=== PATIENT | female | born 1960 | race Caucasian/White ===

== ENCOUNTER 2022-11-11 15:58 | Inpatient (IN) | payer SELFPAY ==
[~2022-11-11] VITALS: Ht 160 cm; Wt 60.2 kg
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
[2022-11-11 16:27] LABS: BASOPHILS % (AUTO) 0 % (0-10); EOSINOPHILS # (AUTO) 0.1 10^3/uL (0.0-0.3); EOSINOPHILS % (AUTO) 1 % (0-10); HEMATOCRIT 39 % (35-52); HEMOGLOBIN 13.6 g/dL (11.5-16.0); LYMPHOCYTES # (AUTO) 1.5 10^3/uL (1.0-4.0); LYMPHOCYTES % (AUTO) 23 % (12-44); MEAN CORPUSCULAR HEMOGLOBIN 31 pg (25-34); MEAN CORPUSCULAR HGB CONC 35 g/dL (32-36); MEAN CORPUSCULAR VOLUME 90 fL (80-99); MEAN PLATELET VOLUME 8.8 fL (9.0-12.2); MONOCYTES # (AUTO) 0.3 10^3/uL (0.0-1.0); MONOCYTES % (AUTO) 5 % (0-12); NEUTROPHILS # (AUTO) 4.9 10^3/uL (1.8-7.8); NEUTROPHILS % (AUTO) 71 % (42-75); PLATELET COUNT 175 10^3/uL (130-400); WHITE BLOOD COUNT 6.8 10^3/uL (4.3-11.0)
[2022-11-11 16:31] LABS: ALBUMIN 4.1 GM/DL (3.2-4.5); CHLORIDE 103 MMOL/L (98-107); POTASSIUM 3.2 MMOL/L (3.6-5.0); SODIUM 137 MMOL/L (135-145)
[2022-11-11 16:33] LABS: CALCIUM 8.8 MG/DL (8.5-10.1)
[2022-11-11 16:34] LABS: GLUCOSE 130 MG/DL (70-105); TOTAL PROTEIN 6.8 GM/DL (6.4-8.2)
[2022-11-11 16:35] LABS: CARBON DIOXIDE 20 MMOL/L (21-32)
[2022-11-11 16:36] LABS: BILIRUBIN,TOTAL 0.2 MG/DL (0.1-1.0)
[2022-11-11 16:37] LABS: PROTHROMBIN TIME PATIENT 13.7 SEC (12.2-14.7)
[2022-11-11 16:38] LABS: ALKALINE PHOSPHATASE 74 U/L (40-136); CREATININE SERUM 0.78 MG/DL (0.60-1.30); GFR ESTIMATED 85
[2022-11-11 16:39] LABS: BUN/CREATININE RATIO 12
[2022-11-11 16:40] LABS: SALICYLATE < 5.0 MG/DL (5.0-20.0)
[2022-11-11 16:41] LABS: ALANINE AMINOTRANSFERASE 12 U/L (0-55)
[2022-11-11 16:52] LABS: ACETAMINOPHEN 116 UG/ML (10-30)
[2022-11-11] MEDS ORDERED: NS IV 1000 ML 1,000 ML IV SCH (18:15)
[2022-11-11 21:02] LABS: BILIRUBIN,URINE NEGATIVE (NEGATIVE); CLARITY,URINE CLEAR; COLOR,URINE YELLOW; GLUCOSE, URINE (UA) NEGATIVE (NEGATIVE); KETONES,URINE NEGATIVE (NEGATIVE); LEUKOCYTE ESTERASE ,URINE NEGATIVE (NEGATIVE); NITRITE,URINE NEGATIVE (NEGATIVE); PH,URINE 5.5 (5-9); PROTEIN,URINE NEGATIVE (NEGATIVE)
[2022-11-11 21:10] LABS: BACTERIA,URINE TRACE /HPF
[2022-11-11 21:15] LABS: AMPHETAMINE SCREEN, URINE NEGATIVE (NEGATIVE); BARBITURATE SCREEN URINE NEGATIVE (NEGATIVE); BENZODIAZEPINES SCREEN URINE NEGATIVE (NEGATIVE); CANNABINOID SCREEN, URINE NEGATIVE (NEGATIVE); COCAINE SCREEN URINE NEGATIVE (NEGATIVE); METHADONE STAT NEGATIVE (NEGATIVE); OPIATE SCREEN URINE POSITIVE (NEGATIVE); OXYCODONE STAT POSITIVE (NEGATIVE); PROPOXYPHENE STAT NEGATIVE (NEGATIVE); TRICYCLIC ANTIDEPRESSANTS SCRE NEGATIVE (NEGATIVE)
[2022-11-12] MEDS ORDERED: KCL 20 MEQ TAB (K-DUR) PO ONE ×2 (03:45→06:22)
[2022-11-12] MEDS ORDERED: ONDANSETRON 4 MG (ZOFRAN) ORAL DISSOLVE TAB SL STA (09:25)
[2022-11-12] MEDS ORDERED: NS IV 1000 ML 1,000 ML IV STA (10:17)
[2022-11-12] MEDS ORDERED: ONDANSETRON 4 MG/2 ML (SDV) Z0FRAN IVP ONE (10:30)
[2022-11-12] MEDS ORDERED: NICOTINE 21 MG (NICODERM) PATCH TD ONE (14:45)
[2022-11-13 03:11] LABS: HEMATOCRIT 37 % (35-52); HEMOGLOBIN 12.8 g/dL (11.5-16.0); MEAN CORPUSCULAR HEMOGLOBIN 31 pg (25-34); MEAN CORPUSCULAR HGB CONC 35 g/dL (32-36); MEAN CORPUSCULAR VOLUME 91 fL (80-99); PLATELET COUNT 164 10^3/uL (130-400)
[2022-11-13 03:19] LABS: CHLORIDE 106 MMOL/L (98-107); POTASSIUM 3.7 MMOL/L (3.6-5.0)
[2022-11-13 03:20] LABS: ALBUMIN 3.6 GM/DL (3.2-4.5); SODIUM 137 MMOL/L (135-145)
[2022-11-13 03:21] LABS: CALCIUM 8.9 MG/DL (8.5-10.1)
[2022-11-13 03:22] LABS: GLUCOSE 96 MG/DL (70-105)
[2022-11-13 03:23] LABS: CARBON DIOXIDE 23 MMOL/L (21-32); TOTAL PROTEIN 6.1 GM/DL (6.4-8.2)
[2022-11-13 03:24] LABS: BILIRUBIN,TOTAL 1.4 MG/DL (0.1-1.0)
[2022-11-13 03:26] LABS: ALKALINE PHOSPHATASE 73 U/L (40-136); CREATININE SERUM 0.78 MG/DL (0.60-1.30); GFR ESTIMATED 85
[2022-11-13 03:27] LABS: BUN/CREATININE RATIO 13
[2022-11-13 03:29] LABS: ALANINE AMINOTRANSFERASE 168 U/L (0-55)
[2022-11-13 03:34] LABS: ACETAMINOPHEN < 10 UG/ML (10-30)
[2022-11-13] MEDS ORDERED: LACTATED RINGERS 1,000 ML IV ONE (06:15)
[2022-11-13 09:43] LABS: BASOPHILS % (AUTO) 1 % (0-10); EOSINOPHILS # (AUTO) 0.1 10^3/uL (0.0-0.3); EOSINOPHILS % (AUTO) 1 % (0-10); HEMATOCRIT 38 % (35-52); HEMOGLOBIN 13.2 g/dL (11.5-16.0); LYMPHOCYTES # (AUTO) 0.9 10^3/uL (1.0-4.0); LYMPHOCYTES % (AUTO) 15 % (12-44); MEAN CORPUSCULAR HEMOGLOBIN 31 pg (25-34); MEAN CORPUSCULAR HGB CONC 34 g/dL (32-36); MEAN CORPUSCULAR VOLUME 91 fL (80-99); MEAN PLATELET VOLUME 9.1 fL (9.0-12.2); MONOCYTES # (AUTO) 0.3 10^3/uL (0.0-1.0); MONOCYTES % (AUTO) 5 % (0-12); NEUTROPHILS % (AUTO) 78 % (42-75); PLATELET COUNT 162 10^3/uL (130-400); WHITE BLOOD COUNT 6.4 10^3/uL (4.3-11.0)
[2022-11-13 09:55] LABS: INR 1.2 (0.8-1.4); PROTHROMBIN TIME PATIENT 15.7 SEC (12.2-14.7)
[2022-11-13 10:05] LABS: ALANINE AMINOTRANSFERASE 259 U/L (0-55); ALBUMIN 3.8 GM/DL (3.2-4.5); ALKALINE PHOSPHATASE 70 U/L (40-136); BILIRUBIN,TOTAL 1.6 MG/DL (0.1-1.0); BUN/CREATININE RATIO 12; CALCIUM 9.2 MG/DL (8.5-10.1); CARBON DIOXIDE 26 MMOL/L (21-32); CHLORIDE 104 MMOL/L (98-107); CREATININE SERUM 0.81 MG/DL (0.60-1.30); GFR ESTIMATED 82; GLUCOSE 111 MG/DL (70-105); MAGNESIUM 1.8 MG/DL (1.6-2.4); POTASSIUM 3.8 MMOL/L (3.6-5.0); SODIUM 137 MMOL/L (135-145); TOTAL PROTEIN 6.2 GM/DL (6.4-8.2)
[2022-11-13 10:17] LABS: ACETAMINOPHEN < 10 UG/ML (10-30)
[2022-11-13] MEDS ORDERED: D5W IV ONE ×8 (10:30→17:00)
[2022-11-13] MEDS ORDERED: ACETYLCYSTEINE IV ONE ×8 (10:30→17:00)
[2022-11-13] MEDS ORDERED: ACETYLCYSTEINE INJECTION 0 MG in D5W IV SOLUTION (EXCEL) 250 ML IV ONE (10:30)
[2022-11-13] MEDS ORDERED: ONDANSETRON 4 MG/2 ML (SDV) Z0FRAN IV PRN (12:00)
[2022-11-13] MEDS ORDERED: polyethylene glycoL POWDER 17 GM (MIRALAX) PACK PO PRN (12:00)
[2022-11-13] MEDS ORDERED: MELATONIN 3 MG TABLET PO PRN (12:00)
--- NOTE | 2022-11-13 13:33 | Tele-ICU Consult ---
History of Present Illness History of Present Illness Date Seen by Provider: Nov 13, 2022 Time Seen by Provider: 13:33 Date of Admission (Tele-ICU Physician , consultation as per request of PCP Service provided via interactive audio and video telecommunications E-CARE system to a patient admitted to ICU bed in [facility]. Available chart/ vitals / labs / Images reviewed H&P is from ER notes Patient's information available about PMH, Shx, Fhx allergy reviewed inEMR. ROS as per chart and RN report Now in ICU, hemodynamically stable Video assessment done using teleICU camera, rest of exam as per RN Discussed with RN. Consultants: Hospital course: (11/11) orignally for suicidal attempt opiates and tylenol overdose 80-100 pills see notes family issues multiple attempts prior (11/13) 62 y F with opiate and tylenol overdose along with liver failure await bed for psych inpatient none available ICU close monitoring A/P Tylenol poisoning ( Suicidal attempt) 11/11 - seen in ER , tylnol lvel =84 11/11/22 @ 20.16 - now with evidence of liver injury on current labs ( but no encephalopathy ! and nl coags) PLAN _Acetylcysteine IV-protocol - ( discussed , poison control center also will be contacted again by bedside -Follow LFT and coags -should be considered for liver transplant and referred to a specialty center if progressing to liver failure ( encephalopaty , coagulopathy -NPO to consider Suisical ideation - assessment and plans as per bedside Lines : , (Central Line Necessity Reviewed) Causey: void OG: Nutrition: Analgesia: Anxiety/ delirium VTE Prophylaxis: scd Stress Ulcer Prophylaxis: Plans in collaboration with bedside consultants and IM MDs. Discussed with RN to reach out if any questions or concerns A total of _20 minutes of critical care time was devoted to this patient today, required to treat and/or prevent further deterioration of critical care condition ( as above ) . I am remotely monitoring this patient from another state. I am unable to do the bedside exam, and history/physical and pertinent information is taken from other notes in the computer and bedside staff. . Allergies and Home Medications Allergies Coded Allergies: No Known Drug Allergies (Unverified , 11/11/22) Past Medical/Social/Family Hx Patient Social History Tobacco Use?: Yes Smoking Status: Current Everyday Smoker Substance use?: No Alcohol Use?: Yes Alcohol type: Wine Alcohol Frequency: Couple times a week Pt stated abuse/neglect: No Immunizations Up To Date Influenza Vaccine Up-to-Date: No; Not Current First/Initial COVID19 Vaccinat: 2020 Second COVID19 Vaccination Luis: 2020 Current Status Advance Directives: No Communicates: Verbally Primary Language: French Preferred Spoken Language: French Is interpretation needed?: No Implanted or Applied Medical D: Orthopedic hardware Review of Systems Constitutional: see HPI Focused Exam Height, Weight, BMI Height: '" Weight: lbs. oz. kg; 23.00 BMI Method: Exam Exam Patient acknowledged, consented, and participated in this virtual visit which was conducted using real time audio/video Vital Signs Date Time Temp Pulse Resp B/P (MAP) Pulse Ox O2 Delivery O2 Flow Rate FiO2 11/13/22 11:47 87 16 145/80 98 Room Air 11/13/22 00:30 36.3 76 18 128/69 (88) 98 Room Air 11/12/22 19:30 36.4 82 18 124/74 (91) 97 Room Air I & O 11/13/22 07:00 Intake Total 1000 ml Balance 1000 ml Height & Weight Height: '" Weight: lbs. oz. kg; 23.00 BMI Method: General Appearance: No Apparent Distress, WD/WN HEENT: Normal ENT Inspection, Pharynx Normal, Moist Mucous Membranes Neck: Full Range of Motion, Normal Inspection, Non Tender Respiratory: Lungs Clear, Normal Breath Sounds, No Accessory Muscle Use, No Respiratory Distress Cardiovascular: Regular Rate, Rhythm, No Edema, No Gallop, Normal Peripheral Pulses Capillary Refill: Less Than 3 Seconds Extremity: Normal Capillary Refill, Normal Inspection, Normal Range of Motion Neurologic/Psychiatric: Alert, Oriented x3, No Motor/Sensory Deficits, Normal Mood/Affect Skin: Normal Color, Warm/Dry Results Lab Laboratory Tests 11/11/22 16:05 11/13/22 03:04 11/13/22 09:37 Assessment/Plan Assessment/Plan 1 JEFFERSON JARAMILLO MD Nov 13, 2022 13:33
--- NOTE | 2022-11-13 14:02 | History & Physical-Hospitalist ---
History of Present Illness HPI/Chief Complaint Patient is 62-year-old female who presented to the emergency department due to intentional hydrocodone/acetaminophen overdose. She reports that she got some distressing news regarding a family member. She stated to the emergency room that she just wanted to be done with it all and so took somewhere between 80 and 100 tabs of 5/325 Lortab. Her Tylenol level was elevated on arrival. She was screened by mental health and deemed a candidate for involuntary inpatient psychiatric admission. At this point she is willing to go inpatient and denies any suicidal ideation at the moment. She did have elevated liver enzymes and an acetylcysteine is being started. She denies any abdominal pain, nausea, vomiting. Reportedly she does have a history of suicide attempt by overdose in the past. Date Seen 11/13/22 Time Seen by a Provider: 13:00 Attending Physician No,Local Physician PCP Admitting Physician: Kavya Urban MD Attending Physician: Kavya Urban MD Referring Physician Date of Admission Nov 13, 2022 at 10:35 Home Medications & Allergies Home Medications Reviewed patient Home Medication Reconciliation performed by pharmacy medication reconciliations hematology technician and/or nursing. Patients Allergies have been reviewed. Allergies Allergies Coded Allergies No Known Drug Allergies (Unverified11/11/22) Past Ieqqhqx-Tnpcoe-Kynxpl Hx Patient Social History Tobacco Use?: Yes Smoking Status: Former Smoker Substance use?: No Alcohol Use?: Yes Alcohol type: Wine Alcohol Frequency: Daily Pt feels they are or have been: No Immunizations Up To Date First/Initial COVID19 Vaccinat: 2020 Second COVID19 Vaccination Luis: 2020 Current Status status: No status: No Advance Directives: No Communicates: Verbally Primary Language: Cymraes Preferred Spoken Language: Cymraes Is interpretation needed?: Unable to obtain Sensory deficits: Vision impairment Implanted or Applied Medical D: None Review of Systems Constitutional: see HPI Physical Exam Physical Exam Vital Signs Vital Signs - First Documented 11/15/22 08:32 Temp 36.5 Capillary Refill : Less Than 3 Seconds Height, Weight, BMI Height: '" Weight: lbs. oz. kg; 23.86 BMI Method: General Appearance: No Apparent Distress Eyes: Right Eye Normal Inspection, Right Eye PERRL HEENT: PERRL/EOMI, TMs Normal, Normal ENT Inspection, Pharynx Normal, Moist Mucous Membranes Neck: Full Range of Motion, Normal Inspection, Non Tender Respiratory: Chest Non Tender, Lungs Clear, Normal Breath Sounds, No Accessory Muscle Use, No Respiratory Distress Cardiovascular: Regular Rate, Rhythm, No Edema, No Gallop, No JVD, No Murmur, Normal Peripheral Pulses Gastrointestinal: Normal Bowel Sounds, No Organomegaly, No Pulsatile Mass, Non Tender, Soft Back: Normal Inspection, No CVA Tenderness, No Vertebral Tenderness Extremity: Normal Capillary Refill, Normal Inspection, Normal Range of Motion, Non Tender, No Calf Tenderness, No Pedal Edema Neurologic/Psychiatric: Alert, Oriented x3, No Motor/Sensory Deficits, Normal Mood/Affect Skin: Normal Color, Warm/Dry Lymphatic: No Adenopathy Results Results/Procedures Labs Patient resulted labs reviewed. Assessment/Plan Admission Diagnosis Intentional Overdose Admission Status: Inpatient Order (span 2 midnights) Reason for Inpatient Admission: see below Assessment and Plan Intentional Overdose Tylenol Poisoning NAC started Monitor in ICU Sitter 1:1 Agreeable to psych placement when medically stable Diagnosis/Problems Diagnosis/Problems (1) Suicidal ideation Status: Acute (2) Drug overdose, intentional Status: Acute Qualifiers: Encounter type: initial encounter Qualified Codes: T50.902A - Poisoning by unspecified drugs, medicaments and biological substances, intentional self-harm, initial encounter (3) Tylenol overdose KAVYA URBAN MD Nov 13, 2022 14:02
[2022-11-13 17:59] LABS: ALBUMIN 3.6 GM/DL (3.2-4.5)
[2022-11-13 18:01] LABS: INR 1.2 (0.8-1.4); PROTHROMBIN TIME PATIENT 16.1 SEC (12.2-14.7)
[2022-11-13 18:04] LABS: BILIRUBIN,TOTAL 1.2 MG/DL (0.1-1.0)
[2022-11-13 18:08] LABS: BILIRUBIN,DIRECT 0.6 MG/DL (0.0-0.3); BILIRUBIN,INDIRECT 0.6 MG/DL
[2022-11-14 05:59] LABS: ALBUMIN 3.5 GM/DL (3.2-4.5); BILIRUBIN,TOTAL 1.3 MG/DL (0.1-1.0); CALCIUM 8.8 MG/DL (8.5-10.1); CREATININE SERUM 0.73 MG/DL (0.60-1.30); POTASSIUM 3.3 MMOL/L (3.6-5.0); TOTAL PROTEIN 5.7 GM/DL (6.4-8.2)
[2022-11-14] MEDS: MAGNESIUM 1 GM/100 ML IVPB 100 ML IV SCH (06:00)
[2022-11-14] MEDS: KCL 20 MEQ TAB (K-DUR) PO SCH ×3 (06:00→08:15)
[2022-11-14] MEDS ORDERED: NS IV 500 ML 500 ML IV PRN (06:00)
[2022-11-14] MEDS: POTASSIUM CL 10MEQ/50ML IVPB 50 ML IV SCH (06:00)
[2022-11-14] MEDS ORDERED: POTASSIUM CL 10MEQ/50ML IVPB 50 ML IV SCH (06:30)
[2022-11-14 08:56] LABS: INR 1.1 (0.8-1.4); PROTHROMBIN TIME PATIENT 14.8 SEC (12.2-14.7)
[2022-11-14 09:06] LABS: ALBUMIN 3.8 GM/DL (3.2-4.5); BILIRUBIN,DIRECT 0.7 MG/DL (0.0-0.3); BILIRUBIN,INDIRECT 0.8 MG/DL; BILIRUBIN,TOTAL 1.5 MG/DL (0.1-1.0); TOTAL PROTEIN 6.1 GM/DL (6.4-8.2)
--- NOTE | 2022-11-14 09:22 | Progress Note - Hospitalist ---
Subjective HPI/CC On Admission Date Seen by Provider: Nov 14, 2022 Patient is 62-year-old female who presented to the emergency department due to intentional hydrocodone/acetaminophen overdose. She reports that she got some distressing news regarding a family member. She stated to the emergency room that she just wanted to be done with it all and so took somewhere between 80 and 100 tabs of 5/325 Lortab. Her Tylenol level was elevated on arrival. She was screened by mental health and deemed a candidate for involuntary inpatient psychiatric admission. At this point she is willing to go inpatient and denies any suicidal ideation at the moment. She did have elevated liver enzymes and an acetylcysteine is being started. She denies any abdominal pain, nausea, vomiting. Reportedly she does have a history of suicide attempt by overdose in the past. Subjective/Events-last exam Pt reports doing well. No abd pain or nausea/vomiting. Is having constipation but does not want anything to help her have BM at this time since there is a sitter with her. She then asked for deodorant. I provided this to patient but informed sitter of it. Objective Exam Vital Signs Vital Signs Date Time Temp Pulse Resp B/P (MAP) Pulse Ox O2 Delivery O2 Flow Rate FiO2 11/14/22 07:58 73 11/14/22 06:00 16 107/64 (78) 92 Room Air 11/13/22 20:00 37.0 Capillary Refill : Less Than 3 Seconds General Appearance: No Apparent Distress, WD/WN Respiratory: Lungs Clear, No Respiratory Distress Cardiovascular: Regular Rate, Rhythm, No Murmur Gastrointestinal: Normal Bowel Sounds, Non Tender, Soft Neurologic/Psychiatric: Alert, Oriented x3 Results/Procedures Lab Laboratory Tests 11/13/22 09:37 11/14/22 05:05 Patient resulted labs reviewed. Assessment/Plan Assessment and Plan Assess & Plan/Chief Complaint Itentional Overdose Tylenol Poisoning NAC to complete today Check labs after wards- up further today but hopefully will start to decrease4 Sitter 1:1 Agreeable to psych placement when medically stable Social work consulted, appreciate recs Diagnosis/Problems Diagnosis/Problems (1) Suicidal ideation Status: Acute (2) Drug overdose, intentional Status: Acute Qualifiers: Encounter type: initial encounter Qualified Codes: T50.902A - Poisoning by unspecified drugs, medicaments and biological substances, intentional self-harm, initial encounter (3) Tylenol overdose SHYLA SANDY MD Nov 14, 2022 09:22
--- NOTE | 2022-11-14 09:32 | Tele-ICU Progress Note ---
Subjective Date Seen by a Provider: Nov 14, 2022 Time Seen by a Provider: 09:32 Subjective/Events-last exam (Tele-ICU Physician , Progress Note ) Service provided via interactive audio and video telecommunications E-CARE system to a patient admitted to ICU bed in [facility]. Patient is seen today due to persistent need of ICU care Available chart/ vitals / labs / Images reviewed Video assessment done using teleICU camera, rest of exam as per RN Discussed with RN Events overnight : Afebrile hemodynamically stable Respiratory - I/O = Drips: Pressors- no Consultants: Hospital course: (11/11) orignally for suicidal attempt opiates and tylenol overdose 80-100 pills see notes family issues multiple attempts prior (11/13) 62 y F with opiate and tylenol overdose along with liver failure await bed for psych inpatient none available ICU close monitoring (11/11) orignally for suicidal attempt opiates and tylenol overdose 80-100 pills see notes family issues multiple attempts prior (11/13) 62 y F with opiate and tylenol overdose along with liver failure await bed for psych inpatient none available ICU close monitoring A/P Tylenol poisoning ( Suicidal attempt) 11/11 - seen in ER , tylnol lvel =84 11/11/22 @ 20.16 - now with evidence of liver injury on current labs ( but no encephalopathy and maintaines nl coags) PLAN -Acetylcysteine IV-protocol - ( discussed , poison control center also will be contacted again by bedside -Follow LFT and coags - with rising LFT consider to give another Acetylcysteine IV bag , RN to call poison control for recommendations -should be considered for liver transplant and referred to a specialty center if progressing to liver failure ( encephalopaty , coagulopathy Suisical ideation - assessment and plans as per bedside team Lines : , (Central Line Necessity Reviewed) Causey: void OG: Nutrition: no Analgesia: Anxiety/ delirium VTE Prophylaxis: scd Stress Ulcer Prophylaxis: Plans in collaboration with bedside consultants and IM MDs. Discussed with RN to reach out if any questions or concerns A total of _20 minutes of critical care time was devoted to this patient today, required to treat and/or prevent further deterioration of critical care condition ( as above ) . I am remotely monitoring this patient from another state. I am unable to do the bedside exam, and history/physical and pertinent information is taken from other notes in the computer and bedside staff. . Sepsis Event Evaluation Height, Weight, BMI Height: '" Weight: lbs. oz. kg; 23.86 BMI Method: Exam Exam Patient acknowledged, consented, and participated in this virtual visit which was conducted using real time audio/video Vital Signs Date Time Temp Pulse Resp B/P (MAP) Pulse Ox O2 Delivery O2 Flow Rate FiO2 11/14/22 07:58 73 11/14/22 06:00 66 16 107/64 (78) 92 Room Air 11/14/22 05:00 64 100/65 (77) 93 Room Air 11/14/22 04:00 61 8 102/65 (77) 93 Room Air 11/14/22 04:00 95 Room Air 11/14/22 03:00 58 18 105/67 (80) 92 Room Air 11/14/22 02:00 71 17 95/59 (71) 92 Room Air 11/14/22 01:00 60 15 94/54 (67) 92 Room Air 11/14/22 01:00 60 11/14/22 00:00 84 26 107/75 (86) 92 Room Air 11/14/22 00:00 93 Room Air 11/13/22 23:00 83 22 116/91 (99) 94 Room Air 11/13/22 22:00 69 15 106/62 (77) 91 Room Air 11/13/22 21:00 70 12 118/59 (78) 93 Room Air 11/13/22 20:00 37.0 11/13/22 20:00 70 14 133/77 (95) 93 Room Air 11/13/22 20:00 Room Air 11/13/22 19:00 83 11/13/22 19:00 75 142/100 (114) 95 Room Air 11/13/22 18:00 73 10 151/85 (107) 95 Room Air 11/13/22 17:00 75 6 134/88 (103) 96 Room Air 11/13/22 16:57 Room Air 11/13/22 16:42 37.3 11/13/22 16:00 71 12 134/79 (97) 95 Room Air 11/13/22 15:00 73 11 129/78 (95) 94 Room Air 11/13/22 14:00 72 11 144/78 (100) 95 Room Air 11/13/22 13:30 82 14 142/86 (104) 96 Room Air 11/13/22 13:15 69 9 136/83 (100) 96 Room Air 11/13/22 13:06 67 11/13/22 13:00 63 12 131/84 (100) 96 Room Air 11/13/22 12:45 75 12 149/89 (109) 97 Room Air 11/13/22 12:30 76 135/85 (102) 97 Room Air 11/13/22 12:20 Room Air 11/13/22 12:15 77 129/89 (102) 96 Room Air 11/13/22 12:10 78 11/13/22 11:47 87 16 145/80 98 Room Air 11/13/22 11:45 80 130/83 (99) I & O 11/14/22 07:00 Intake Total 2989 ml Balance 2989 ml Height & Weight Height: '" Weight: lbs. oz. kg; 23.86 BMI Method: General Appearance: No Apparent Distress, WD/WN HEENT: PERRL/EOMI, TMs Normal, Normal ENT Inspection, Pharynx Normal, Moist Mucous Membranes Neck: Full Range of Motion, Normal Inspection, Non Tender Respiratory: Lungs Clear, No Respiratory Distress Cardiovascular: Regular Rate, Rhythm, No Murmur Capillary Refill: Less Than 3 Seconds Extremity: Normal Capillary Refill, Normal Inspection, Normal Range of Motion, Non Tender, No Calf Tenderness, No Pedal Edema Neurologic/Psychiatric: Alert, Oriented x3 Skin: Normal Color, Warm/Dry Lymphatic: No Adenopathy Results Lab Laboratory Tests 11/13/22 03:04 11/13/22 09:37 11/14/22 05:05 Assessment/Plan Assessment/Plan 1 JEFFERSON JARAMILLO MD Nov 14, 2022 09:32
[2022-11-14] MEDS ORDERED: D5W IV SCH (10:00)
[2022-11-14] MEDS ORDERED: ACETYLCYSTEINE IV SCH (10:00)
[2022-11-14] MEDS ORDERED: LORA-404 PO (16:06)
[2022-11-14] MEDS ORDERED: ACHD5005 PO (16:06)
[2022-11-15 01:08] LABS: ALBUMIN 3.8 GM/DL (3.2-4.5)
[2022-11-15 01:11] LABS: TOTAL PROTEIN 6.4 GM/DL (6.4-8.2)
[2022-11-15 01:12] LABS: BILIRUBIN,TOTAL 1.1 MG/DL (0.1-1.0)
[2022-11-15 01:16] LABS: BILIRUBIN,DIRECT 0.8 MG/DL (0.0-0.3); BILIRUBIN,INDIRECT 0.3 MG/DL
[2022-11-15 06:06] LABS: ALBUMIN 3.9 GM/DL (3.2-4.5); BILIRUBIN,TOTAL 1.5 MG/DL (0.1-1.0); CALCIUM 9.5 MG/DL (8.5-10.1); CREATININE SERUM 0.78 MG/DL (0.60-1.30); POTASSIUM 3.9 MMOL/L (3.6-5.0); TOTAL PROTEIN 6.4 GM/DL (6.4-8.2)
[2022-11-15] MEDS: POTASSIUM CL 10MEQ/50ML IVPB 50 ML IV SCH (06:16)
[2022-11-15] MEDS: KCL 20 MEQ TAB (K-DUR) PO SCH (06:16)
[2022-11-15] MEDS: MAGNESIUM 1 GM/100 ML IVPB 100 ML IV SCH (06:41)
[2022-11-15 08:32] VITALS: BP 118/71
[2022-11-15 11:17] VITALS: BP 103/66
--- NOTE | 2022-11-15 11:20 | Discharge Summary ---
Diagnosis/Chief Complaint Date of Admission Nov 13, 2022 at 10:35 Date of Discharge Discharge Date: Nov 15, 2022 Admission Diagnosis Intentional Overdose Primary Care No,Local Physician Discharge Diagnosis (1) Suicidal ideation Status: Acute (2) Drug overdose, intentional Status: Acute (3) Tylenol overdose Discharge Summary Discharge Physical Exam Allergies: Coded Allergies: No Known Drug Allergies (Unverified , 11/11/22) Vitals & I&Os General Appearance: No Apparent Distress Cardiovascular: Regular Rate, Rhythm, No Murmur Gastrointestinal: Normal Bowel Sounds, No Organomegaly, Soft Neurologic/Psychiatric: Alert, Oriented x3 Hospital Course Patient was admitted to the hospital secondary to acute Tylenol overdose with suicidal intention. She was found to have acute hepatitis secondary to this. She was treated with N acetylcysteine and her liver enzymes improved. She was accepted in transfer to [facility] psychiatric unit by Dr Nance for further care. Labs (last 24 hrs) Microbiology 11/13/22 MRSA Screen - Final, Complete MRSA not isolated Patient resulted labs reviewed. Pending Labs Discussion & Recommendations Discharge Planning: >30 minutes discharge planning Discharge Home Medications: Active Scripts Active Reported Ativan (Lorazepam) 0.5 Mg Tablet 0.5 Mg PO BID PRN Hydrocodone-Acetamin 5-325 mg (Hydrocodone/Acetaminophen) 5 Mg-325 Mg Tablet 1 Tab PO Q8H PRN Instructions to patient/family Please see electronic discharge instructions given to patient. Problem Qualifiers (1) Drug overdose, intentional: Encounter type: initial encounter Qualified Codes: T50.902A - Poisoning by unspecified drugs, medicaments and biological substances, intentional self-harm, initial encounter SHYLA SANDY MD Nov 15, 2022 11:20
[2022-11-15 14:27] VITALS: BP 103/66
== END 2022-11-15 14:25 | DRG 918 ==
LOC: EDUNIT# 15:58 → ER 15:59 → ICU 11-13 10:35 → 4TH 11-15 07:12
PROVIDERS: ADMIT Family Medicine; ATTEND Family Medicine
DX: T40.2X2A Poisoning by other opioids, intentional self-harm, initial encounter (principal); T39.1X2A Poisoning by 4-Aminophenol derivatives, intentional self-harm, initial encounter; K71.10 Toxic liver disease with hepatic necrosis, without coma; F32.A Depression, unspecified; F10.229 Alcohol dependence with intoxication, unspecified; K59.00 Constipation, unspecified; E87.6 Hypokalemia; F17.200 Nicotine dependence, unspecified, uncomplicated; Y90.6 Blood alcohol level of 120-199 mg/100 ml; Z20.822 Contact with and (suspected) exposure to COVID-19
CPT/HCPCS: 36415; 80053; 80076; 80306; 80320; 80329; 81000; 82947; 83735; 84443; 85025; 85027; 85610; 85730; 87081; 87636; 93005; 93041